=== PATIENT | male | born 1995 ===

== ENCOUNTER 2019-06-08 12:07 | Emergency (ER) | payer BC ==
--- NOTE | 2019-06-08 12:53 | UC ---
Throat Pain/Nasal Michael HPI - HPI Summary HPI Summary: The patient is a 24-year-old male who was in his usual state of good health until 3 days ago. At that point he started noticing some painful swollen lymph nodes in his neck as well as a mild sore throat. For the past 24 hours he has had chills and myalgias along with a mild headache. He feels very fatigued. He denies any chest pain or shortness of breath. He denies any nausea vomiting or diarrhea. He denies any abdominal pain. - History of Current Complaint Chief Complaint: UCRespiratory Stated Complaint: THROAT COMPLAINT Time Seen by Provider: 06/08/19 12:46 Hx Obtained From: Patient Onset/Duration: Gradual Onset, Lasting Days Severity: Moderate Pain Intensity: 6 Pain Scale Used: 0-10 Numeric Cough: None Associated Signs & Symptoms: Positive: Negative - Allergies/Home Medications Allergies/Adverse Reactions: Allergies Allergy/AdvReac Type Severity Reaction Status Date / Time No Known Allergies Allergy Verified 06/08/19 12:27 Home Medications: Home Medications Dm/Acetaminophen/Doxylamine [Vicks Nyquil Cold & Flu N 15-6.25-325 mg] 2 cap PO BEDTIME 06/08/19 [History Confirmed 06/08/19] Dm/P-Ephed/Acetaminoph/Doxylam [Jayda Windber Plus Severe 10-12.5-20-650 mg] 1 pow PO DAILY 06/08/19 [History Confirmed 06/08/19] PMH/Surg Hx/FS Hx/Imm Hx Previously Healthy: Yes - Surgical History Surgical History: Yes Surgery Procedure, Year, and Place: orif of lt hand - Family History Known Family History: Positive: Hypertension, Non-Contributory - Social History Alcohol Use: Occasionally Substance Use Type: None Smoking Status (MU): Never Smoked Tobacco Review of Systems All Other Systems Reviewed And Are Negative: Yes Constitutional: Positive: Chills, Fatigue Skin: Positive: Negative Eyes: Positive: Negative ENT: Positive: Sore Throat Respiratory: Positive: Negative Cardiovascular: Positive: Negative Gastrointestinal: Positive: Negative Genitourinary: Positive: Negative Motor: Positive: Negative Neurovascular: Positive: Negative Musculoskeletal: Positive: Negative Neurological: Positive: Negative Psychological: Positive: Negative Physical Exam Triage Information Reviewed: Yes Appearance: Well-Appearing, No Pain Distress, Well-Nourished Vital Signs: Initial Vital Signs Temp 99.8 F 06/08/19 12:24 Pulse 105 06/08/19 12:24 Resp 18 06/08/19 12:24 BP 155/94 06/08/19 12:24 Pulse Ox 155 06/08/19 12:24 Vital Signs Reviewed: Yes Eyes: Positive: Conjunctiva Clear ENT: Positive: Pharyngeal erythema, Tonsillar swelling, Uvula midline Dental Exam: Normal Neck: Positive: Nontender, Enlarged Nodes @ - ant cerv Respiratory: Positive: Lungs clear, Normal breath sounds, No respiratory distress, No accessory muscle use Cardiovascular: Positive: RRR, No Murmur Abdomen Description: Positive: Nontender, No Organomegaly, Soft. Negative: CVA Tenderness (R), CVA Tenderness (L) Bowel Sounds: Positive: Present Musculoskeletal: Positive: ROM Intact, No Edema Neurological: Positive: Alert Psychological Exam: Normal Skin Exam: Normal Diagnostics - Laboratory Lab Results: strep (-) Throat Pain/Nasal Course/Dx - Differential Dx/Diagnosis Provider Diagnosis: Acute pharyngitis, Cervical adenopathy, Elevated BP without diagnosis of hypertension Discharge ED - Sign-Out/Discharge Documenting (check all that apply): Patient Departure All imaging exams completed and their final reports reviewed: No Studies - Discharge Plan Condition: Stable Disposition: HOME Patient Education Materials: Lymphadenopathy (ED) Ref[place]: [facility] [Outside] (recheck BP in 2-20 weeks) Additional Instructions: your strep test was negative rest fluids advil recheck early next week if not better if you fail to improve you may need blood work to check for mono return for new or worsening symptoms - Billing Disposition and Condition Condition: STABLE Disposition: Home
== END 2019-06-08 12:58 | disposition home or self-care (01) ==
LOC: UCEAST 12:07
DX: J02.9 Acute pharyngitis, unspecified (principal); R59.0 Localized enlarged lymph nodes; R03.0 Elevated blood-pressure reading, without diagnosis of hypertension
CPT/HCPCS: 87651; 99201; G0463